=== PATIENT | female | born 1990 | race American Indian/Alaskan Native ===

== ENCOUNTER 2017-07-14 17:27 | Outpatient (CLI) | payer MEDICAID | END 2017-07-14 20:43 | disposition home or self-care (01) | LOC: TRG 17:27 | PROVIDERS: ATTEND Obstetrics & Gynecology | DX: O48.0 Post-term pregnancy (principal); Z3A.40 40 weeks gestation of pregnancy ==

== ENCOUNTER 2017-07-21 11:11 | Outpatient (CLI) | payer MEDICAID ==
[2017-07-21 12:12] VITALS: BP 126/69
[2017-07-21] MEDS ORDERED: NORCO 5/325 PO PRN (12:52)
== END 2017-07-21 13:28 | disposition home or self-care (01) ==
LOC: TRG 11:11 → LD 11:36 → TRG 13:28
PROVIDERS: ATTEND Obstetrics & Gynecology
DX: O48.0 Post-term pregnancy (principal); Z3A.40 40 weeks gestation of pregnancy
CPT/HCPCS: 59025